=== PATIENT | female | born 1985 | race Hispanic/Latino ===

== ENCOUNTER 2023-09-12 09:10 | Emergency (ER) | payer SELFPAY ==
[2023-09-12] MEDS ORDERED: Acetaminophen 500 MG TAB ONE (11:01)
[2023-09-12] MEDS ORDERED: Ketorolac Tromethamine 30 MG (1 mL) VIAL ONE (11:01)
[2023-09-12 11:26] LABS: Influenza A by NAA Not Detected (NotDetected); Influenza B by NAA Not Detected (NotDetected); SARS-CoV-2 NAA Rapid Test Not Detected (NotDetected)
[2023-09-12 13:35] LABS: Bilirubin Negative (Negative); Blood, Urine 2+ (Negative); CAUTI Indications for Culture Pelvic or flank pain; Clarity Clear (Clear); Glucose, Urine (Dipstick) Normal (Negative); Ketone, Urine 40 mg/dL (Negative); Leukocyte Negative Leu/uL (Negative); Nitrite Negative (Negative); Protein, Urine (Dipstick) 10 mg/dL (Neg-Trace); RBC/HPF 0-3 HPF (0-3); Specific Gravity, Urine 1.025 (1.002-1.036); Squamous Epithelial 0-3 HPF (0-3); WBC/HPF 0-3 HPF (0-3); pH, Urine 5.5 (5.0-9.0)
[2023-09-12 13:36] LABS: Bacteria/HPF 1+ HPF (None Seen)
[2023-09-12 13:37] LABS: Urine Culture Reflex No No
[2023-09-12 13:38] LABS: Pregnancy Test - Urine (BHCG) Negative (Negative); Pregu Control Background? CLEAR/WHITE (CLR/WHITE); Pregu Control Bar Appear? YES (CONTROL BAR); Specific Gravity 1.025 (1.002-1.036)
== END 2023-09-12 14:10 | disposition home or self-care (01) ==
LOC: ERS 09:10
DX: J02.9 Acute pharyngitis, unspecified (principal); F17.210 Nicotine dependence, cigarettes, uncomplicated
CPT/HCPCS: 81001; 81025; 87081; 87430; 96372; 99283; J1885

== ENCOUNTER 2023-11-09 19:21 | Emergency (ER) | payer SELFPAY ==
[2023-11-09 21:04] LABS: #Basophils Less than 0.03 10x3/uL (0.0-0.2); %Basophils 0.2 % (0.0-1.0); %Eosinophils 0.5 % (0.0-10.0); %Lymphocytes 21.9 % (21.0-51.0); %Monocytes 9.6 % (0.0-10.0); %Neutrophils 67.4 % (42.0-75.0); Hematocrit 41.8 % (36.0-47.0); Hemoglobin 14.6 g/dL (12.0-16.0); Mean Corpuscular HGB CONC 34.9 g/dL (32.0-36.0); Mean Corpuscular Hemoglobin 29.9 pg (27.0-31.0); Mean Corpuscular Volume 85.5 fL (78.0-98.0); Platelet Count 430 10x3/uL (130-400); RBC Distribution Width 13.4 % (11.5-14.5); Red Blood Cell (RBC) Count 4.89 mill/uL (4.20-5.40)
[2023-11-09 21:14] LABS: BHCG - Serum Negative (NEGATIVE); Pregs Control Background? CLEAR/WHITE (CLR/WHITE); Pregs Control Bar Appear? YES (CONTROL BAR)
[2023-11-09 21:22] LABS: ALT (SGPT) 23 U/L (8-55); AST (SGOT) 19 U/L (5-34); Albumin 3.8 g/dL (3.5-5.0); Alkaline Phosphatase 93 U/L (40-110); Anion Gap 15 mmol/L (10-20); BUN (Urea Nitrogen) 8 mg/dL (7.0-18.7); Bilirubin, Total 0.6 mg/dL (0.2-1.2); CK (CPK) 37 U/L (29-168); Calc. Creatinine Clearance 0 mL/min (70-130); Calcium 9.2 mg/dL (7.8-10.44); Carbon Dioxide 17 mmol/L (22-29); Chloride 108 mmol/L (98-107); Estimated GFR 116; Glucose 95 mg/dL (70-105); Potassium 3.4 mmol/L (3.5-5.1); Protein, Total 7.8 g/dL (6.0-8.3); Sodium 137 mmol/L (136-145)
== END 2023-11-09 22:04 | disposition home or self-care (01) ==
LOC: ERS 19:21
DX: E86.0 Dehydration (principal); R20.2 Paresthesia of skin; Z87.891 Personal history of nicotine dependence; Z79.899 Other long term (current) drug therapy
CPT/HCPCS: 36415; 80053; 82550; 84703; 85025; 93005

== ENCOUNTER 2023-12-14 00:26 | Emergency (ER) | payer SELFPAY | END 2023-12-14 02:20 | disposition home or self-care (01) | LOC: ERS 00:26 | DX: F43.0 Acute stress reaction (principal); Z55.6 Problems related to health literacy; Z87.891 Personal history of nicotine dependence | CPT/HCPCS: 99283 ==

== ENCOUNTER 2023-12-17 04:13 | Emergency (ER) | payer SELFPAY ==
[2023-12-17] MEDS ORDERED: LORazepam 2 MG/ML SYR.(CARPUJECT) ONE (06:29)
== END 2023-12-17 06:46 | disposition home or self-care (01) ==
LOC: ERS 04:13
DX: G47.00 Insomnia, unspecified (principal); F41.9 Anxiety disorder, unspecified; Z87.891 Personal history of nicotine dependence
CPT/HCPCS: 96372; 99282; J2060

== ENCOUNTER 2024-03-14 19:01 | Emergency (ER) | payer BC ==
[2024-03-14] MEDS ORDERED: hydrOXYzine 25 MG TAB ONE (20:38)
[2024-03-14] MEDS ORDERED: hydrOXYzine Pamoate 25 mg Capsule ONE (20:38)
[2024-03-14 21:03] LABS: #Basophils 0.03 10x3/uL (0.0-0.2); %Basophils 0.3 % (0.0-1.0); %Eosinophils 0.4 % (0.0-10.0); %Lymphocytes 37.4 % (21.0-51.0); %Monocytes 7.8 % (0.0-10.0); %Neutrophils 53.9 % (42.0-75.0); Hemoglobin 13.5 g/dL (12.0-16.0); Mean Corpuscular HGB CONC 34.6 g/dL (32.0-36.0); Mean Corpuscular Hemoglobin 30.2 pg (27.0-31.0); Mean Corpuscular Volume 87.2 fL (78.0-98.0); Mean Platelet Volume 9.1 fL (7.4-10.4); Platelet Count 382 10x3/uL (130-400); RBC Distribution Width 13.5 % (11.5-14.5); Red Blood Cell (RBC) Count 4.47 mill/uL (4.20-5.40)
[2024-03-14 21:35] LABS: Troponin I Less than 0.010 ng/mL (< 0.028)
[2024-03-14 21:39] LABS: ALT (SGPT) 15 U/L (8-55); AST (SGOT) 15 U/L (5-34); Albumin 3.4 g/dL (3.5-5.0); Alkaline Phosphatase 96 U/L (40-110); Anion Gap 14 mmol/L (10-20); BUN (Urea Nitrogen) 8 mg/dL (7.0-18.7); Bilirubin, Total 0.3 mg/dL (0.2-1.2); Calc. Creatinine Clearance 0 mL/min (70-130); Calcium 8.9 mg/dL (7.8-10.44); Carbon Dioxide 20 mmol/L (22-29); Chloride 109 mmol/L (98-107); Estimated GFR 115; Globulin 3.7 g/dL (2.4-3.5); Glucose 81 mg/dL (70-105); Potassium 3.2 mmol/L (3.5-5.1); Protein, Total 7.1 g/dL (6.0-8.3); Sodium 140 mmol/L (136-145)
== END 2024-03-14 21:53 | disposition home or self-care (01) ==
LOC: ERS 19:01
DX: F41.9 Anxiety disorder, unspecified (principal); F17.210 Nicotine dependence, cigarettes, uncomplicated
CPT/HCPCS: 36415; 71045; 80053; 84484; 85025; 93005; Q0177

== ENCOUNTER 2024-03-31 02:27 | Emergency (ER) | payer BC ==
[2024-03-31] MEDS ORDERED: hydrOXYzine 25 MG TAB ONE (03:28)
== END 2024-03-31 03:33 | disposition home or self-care (01) ==
LOC: ERS 02:27
DX: F41.9 Anxiety disorder, unspecified (principal); G47.00 Insomnia, unspecified; F17.210 Nicotine dependence, cigarettes, uncomplicated
CPT/HCPCS: 99283

== ENCOUNTER 2024-05-18 20:45 | Emergency (ER) | payer BC | END 2024-05-18 21:34 | disposition home or self-care (01) | LOC: ERS 20:45 | DX: J01.00 Acute maxillary sinusitis, unspecified (principal); F17.210 Nicotine dependence, cigarettes, uncomplicated | CPT/HCPCS: 71045; 87428 ==

== ENCOUNTER 2024-05-27 00:33 | Emergency (ER) | payer BC ==
[2024-05-27] MEDS ORDERED: hydrOXYzine Pamoate 25 mg Capsule ONE (01:55)
== END 2024-05-27 01:59 | disposition home or self-care (01) ==
LOC: ERS 00:33
DX: F43.0 Acute stress reaction (principal); R07.9 Chest pain, unspecified; F17.210 Nicotine dependence, cigarettes, uncomplicated
CPT/HCPCS: 93005; 99284; Q0177

== ENCOUNTER 2025-01-18 19:29 | Emergency (ER) | payer BC ==
[2025-01-18 20:04] LABS: #Basophils Less than 0.03 10x3/uL (0.0-0.2); #Eosinophils 0.06 10x3/uL (0.0-0.7); #Monocytes 0.95 10x3/uL (0.11-0.59); #Neutrophils 4.77 10x3/uL (1.40-6.50); %Basophils 0.3 % (0.0-1.0); %Eosinophils 0.8 % (0.0-10.0); %Lymphocytes 26.9 % (21.0-51.0); %Monocytes 11.9 % (0.0-10.0); %Neutrophils 59.8 % (42.0-75.0); Hematocrit 40.1 % (36.0-47.0); Hemoglobin 13.5 g/dL (12.0-16.0); Mean Corpuscular Hemoglobin 29.4 pg (27.0-31.0); Mean Corpuscular Volume 87.4 fL (78.0-98.0); Platelet Count 362 10x3/uL (130-400); Red Blood Cell (RBC) Count 4.59 mill/uL (4.20-5.40); White Blood Cell (WBC) Count 7.96 10x3/uL (4.8-10.8)
[2025-01-18 20:21] LABS: ALT (SGPT) 34 U/L (Less than 34); AST (SGOT) 36 U/L (11-34); Albumin 3.9 g/dL (3.1-4.5); Alkaline Phosphatase 84 U/L (40-110); Anion Gap 13 mmol/L (10-20); BUN (Urea Nitrogen) 12 mg/dL (7.0-18.7); Bilirubin, Total 0.4 mg/dL (0.3-1.2); Calc. Creatinine Clearance 0 mL/min (70-130); Calcium 9.4 mg/dL (7.8-10.44); Carbon Dioxide 21 mmol/L (22-29); Chloride 106 mmol/L (98-107); Globulin 3.6 g/dL (2.4-3.5); Glucose 79 mg/dL (70-105); Potassium 3.4 mmol/L (3.5-5.1); Sodium 137 mmol/L (136-145)
[2025-01-18 20:22] LABS: BHCG - Serum Negative (NEGATIVE); Pregs Control Background? CLEAR/WHITE (CLR/WHITE); Pregs Control Bar Appear? YES (CONTROL BAR)
[2025-01-18] MEDS ORDERED: Ondansetron PF 4 MG/2 ML Vial ONE (21:28)
[2025-01-18] MEDS ORDERED: Metoclopramide HCl 10 MG (2 mL) VIAL ONE (21:28)
[2025-01-18] MEDS ORDERED: Ketorolac Tromethamine 30 MG (1 mL) VIAL ONE (21:39)
[2025-01-18] MEDS ORDERED: diphenhydrAMINE 50 MG/ML VIAL ONE (21:39)
== END 2025-01-18 23:29 | disposition home or self-care (01) ==
LOC: ERS 19:29
DX: R19.7 Diarrhea, unspecified (principal); G44.209 Tension-type headache, unspecified, not intractable; F17.210 Nicotine dependence, cigarettes, uncomplicated
CPT/HCPCS: 36415; 70450; 80053; 84703; 85025; 96365; 96375; J1200; J1885; J2405; J2765

== ENCOUNTER 2025-02-08 17:55 | Emergency (ER) | payer BC | END 2025-02-08 21:10 | LOC: ERS 17:55 | DX: Z53.21 Procedure and treatment not carried out due to patient leaving prior to being seen by health care provider (principal) ==